=== PATIENT | female | born 1955 | race African-American/Black ===

== ENCOUNTER 2017-04-04 09:48 | Emergency (ER) | payer OTHER ==
[~2017-04-04] VITALS: Ht 167.6 cm; Wt 86.2 kg
[~2017-04-04 09:48] MED LIST: HYCET 7.5 MG-3473 ML PO; KEFLEX500 MG PO; NORCO 5-325 TA1 EACH PO; ONDANSETRON HCL4 M2 PO
[2017-04-04 10:40] VITALS: BP 159/93
== END 2017-04-04 10:40 | disposition home or self-care (01) ==
LOC: ER 09:48
DX: K11.5 Sialolithiasis (principal)